=== PATIENT | female | born 1945 | race American Indian/Alaskan Native ===

== ENCOUNTER 2023-07-07 09:23 | Inpatient (IN) | payer OTHER, MEDICAID ==
[2023-07-07] VITALS (14 sets, daily range): BP systolic 86–149; PULSE 102–130; RESP 20–26; TEMP 97–101.7; O2SAT 85–100
[~2023-07-07] VITALS: Ht 165.1 cm; Wt 80.7 kg
[~2023-07-07 09:23] MED LIST: ETOMIDATE 20 MG/ 10 ML VIAL (AMIDATE) IVP ONE; SUCCINYLCHOLINE CHLORIDE 20 MG/ML(QUELICIN) IVP ONE
[2023-07-07 09:37] LABS: BLOOD GAS PCO2 34.2 mmHg (35.0-45.0); BLOOD GAS PH 7.362 (7.350-7.450)
[2023-07-07 09:55] LABS: BASOPHILS % (AUTO) 0.2 % (0.0-2.0); EOSINOPHILS % (AUTO) 0.1 % (0.0-4.0); HEMATOCRIT 29.3 % (36-48); HEMOGLOBIN 9.7 g/dL (12.0-16.0); LYMPHOCYTES # (AUTO) 1.9 K/uL (1.0-5.5); MEAN CORPUSCULAR HEMOGLOBIN 30 pg (27-31); MEAN CORPUSCULAR HGB CONC 33 % (32-36); MEAN CORPUSCULAR VOLUME 90 fL (79.0-98.0); MONOCYTES # (AUTO) 0.7 K/uL (0.0-1.0); NEUTROPHILS # (AUTO) 11.9 K/uL (1.8-7.7); NEUTROPHILS % (AUTO) 81.7 % (40.0-70.0); PLATELET COUNT (AUTO) 318 K/uL (130-430); RED BLOOD CELL COUNT(AUTO) 3.25 MIL/uL (4.2-6.2); RED CELL DISTRIBUTION WIDTH 12.9 % (9.0-15.0); WHITE BLOOD COUNT (AUTO) 14.6 K/uL (4.8-10.8)
[2023-07-07] MEDS: ACETAMINOPHEN 325 MG SUPP.RECT RC ONE (10:02)
[2023-07-07] MEDS ORDERED: FURO-150 GT (10:04)
[2023-07-07] MEDS ORDERED: AMIN30LI45 GT (10:04)
[2023-07-07] MEDS ORDERED: POLY17PO4 GT (10:04)
[2023-07-07] MEDS ORDERED: LACT1CAP7 GT (10:04)
[2023-07-07] MEDS ORDERED: SENN8.6T19 GT (10:04)
[2023-07-07] MEDS ORDERED: FERR220S5 GT (10:04)
[2023-07-07] MEDS ORDERED: SIME80TA5 GT (10:04)
[2023-07-07] MEDS ORDERED: HYDR100T25 GT (10:04)
[2023-07-07] MEDS ORDERED: ALBU2.5V7 NEB ×2 (10:04)
[2023-07-07] MEDS ORDERED: AMLO10TA88 GT (10:04)
[2023-07-07] MEDS ORDERED: ZINC50TA2 GT (10:04)
[2023-07-07] MEDS ORDERED: LEVE100S GT (10:04)
[2023-07-07] MEDS ORDERED: INSU100V (10:04)
[2023-07-07] MEDS ORDERED: METF-380 GT (10:04)
[2023-07-07] MEDS ORDERED: ASCO500S10 GT (10:04)
[2023-07-07] MEDS ORDERED: ASPI-524 GT (10:04)
[2023-07-07] MEDS ORDERED: METO-540 GT (10:04)
[2023-07-07] MEDS ORDERED: PERIDEX PO (10:04)
[2023-07-07 10:05] LABS: ANION GAP 16 (5-15); CALCIUM 9.3 mg/dL (8.4-11.0); CARBON DIOXIDE 22 mmol/L (23-29); CHLORIDE 99 mmol/L (98-107); CREATININE 1.03 mg/dL (0.55-1.30); GLUCOSE 299 mg/dL (74-106); POTASSIUM 3.9 mmol/L (3.5-5.1); SODIUM SERUM 137 mmol/L (136-145); UREA NITROGEN, BLOOD 38 mg/dL (8-21)
[2023-07-07] MEDS: ALBUTEROL SULFATE 0.083% 2.5 MG/3 ML VIAL.NEB INH ONE (10:06)
[2023-07-07] MEDS: IPRATROPIUM BROM 0.5 MG/2.5 ML VIAL.NEB (ATROVENT) INH ONE (10:07)
[2023-07-07 10:10] LABS: BILIRUBIN,URINE NEGATIVE (NEGATIVE); BLOOD, URINE 2+ (NEGATIVE); CLARITY/URINE HAZY (CLEAR); COLOR,URINE YELLOW (YELLOW); GLUCOSE,URINE 2+ (NEGATIVE); KETONES,URINE NEGATIVE (NEGATIVE); LEUKOCYTE ESTERASE ,URINE 1+ (NEGATIVE); NITRITE, URINE NEGATIVE (NEGATIVE); PROTEIN URINE 2+ (NEGATIVE); UROBILINOGEN,URINE 0.2 (0.2-1.0)
[2023-07-07 10:12] LABS: ALANINE AMINOTRANSFERASE 30 U/L (12-78); ALBUMIN 2.9 g/dL (3.4-4.8); ASPARTATE AMINOTRANSFERASE 40 U/L (10-37); BILIRUBIN,DIRECT 0.1 mg/dL (0.0-0.3); TOTAL BILIRUBIN 0.2 mg/dL (0.0-1.0); TOTAL PROTEIN, SERUM 6.8 g/dL (6.4-8.3)
[2023-07-07 10:32] LABS: INFLUENZA TYPE B NEGATIVE (NEGATIVE)
[2023-07-07 10:33] LABS: RBC,URINE 20-50 /HPF (0-3)
[2023-07-07 10:34] LABS: BACTERIA,URINE FEW /HPF (None Seen)
[2023-07-07 10:37] LABS: INFLUENZA TYPE A Positive (NEGATIVE)
[2023-07-07 10:43] LABS: PROTHROMBIN TIME 10.5 SECS (9.5-12.5)
[2023-07-07] MEDS: OSELTAMIVIR PHOSPHATE 6 MG/1 ML, 60 ML SUSP PO ONE (10:45)
[2023-07-07] MEDS: KCL 20 mEq in D5/0.45NS 1000mL 1,000 ML IV ONE (10:45)
[2023-07-07 11:26] LABS: INR 1.1 (0.8-1.2); PROTHROMBIN TIME 10.9 SECS (9.5-12.5)
[2023-07-07] MEDS: NACL 0.9% 1,000 ML IV ONE ×2 (11:26→16:01)
[2023-07-07] MEDS: cefTRIAXone 1 GM IVPB PREMIX 50 ML IV ONE (11:32)
[2023-07-07] MEDS: LevALBUTEROL HCL 1.25 MG/0.5 ML *CONC.* VIAL.NEB (XOPENEX CONC.) INH SCH (12:02)
[2023-07-07] MEDS ORDERED: OSELTAMIVIR PHOSPHATE 6 MG/1 ML, 60 ML SUSP ONE (12:08)
[2023-07-07] MEDS: PIPERACILLIN/TAZO 3.375 GM in NS 50 ML IV ONE (12:19)
[2023-07-07] MEDS: ETOMIDATE 20 MG/ 10 ML VIAL (AMIDATE) IVP ONE (12:50)
[2023-07-07] MEDS: SUCCINYLCHOLINE CHLORIDE 20 MG/ML(QUELICIN) IVP ONE (12:50)
[2023-07-07] MEDS ORDERED: INSULIN REGULAR, HUMAN 10 UNITS/0.1 ML, 3 ML VIAL ONE (13:13)
[2023-07-07] MEDS: INSULIN REGULAR, HUMAN 100 UNITS/ML, 3 ML VIAL (humuLIN R) SUBCUT SCH (13:15)
[2023-07-07] MEDS: PROPOFOL DRIP 100 ML IV ONE (13:16)
[2023-07-07] MEDS: metroNIDAZOLE 500 mg/NS 100 ML IV ONE (13:45)
[2023-07-07 13:55] LABS: ABG O2 SAT% ESTIMATE 98.6 % (94.0-100.0); BLOOD GAS PCO2 37.6 mmHg (35.0-45.0); BLOOD GAS PO2 145.2 mmHg (75.0-100.0)
[2023-07-07 14:10] LABS: BLOOD GAS PH 7.268 (7.350-7.450)
[2023-07-07 14:11] LABS: BLOOD GAS BASE EXCESS -9.4 mmol/L (-3.0-3.0); BLOOD GAS HCO3 16.8 mmol/L (21.0-27.0)
[2023-07-07 14:12] LABS: ALLEN'S TEST POSITIVE (P)
[2023-07-07 14:20] LABS: ABG O2 SAT% ESTIMATE 83.6 % (94.0-100.0); BLOOD GAS BASE EXCESS -5.5 mmol/L (-3.0-3.0)
[2023-07-07 14:21] LABS: ALLEN'S TEST POSITIVE (P)
[2023-07-07] MEDS ORDERED: GLUCOSE (DEXTROSE) ORAL GEL -Adults PO PRN (14:30)
[2023-07-07] MEDS ORDERED: D5W 1,000 ML IV PRN (14:30)
[2023-07-07] MEDS ORDERED: DEXTROSE 50%-WATER 50 ML DISP.SYRIN IVP PRN (14:30)
[2023-07-07] MEDS: LevETIRAcetam 500 MG/5 ML UDC ORAL LIQUID GT SCH (14:45)
[2023-07-07] MEDS: VANCOMYCIN HCL 500 MG in NS 100 ML IV SCH (16:00)
[2023-07-07] MEDS: methylPREDNISolone SOD SUCC/PF 62.5 MG/ML VIAL IVP ONE (16:19)
[2023-07-07] MEDS: SODIUM BICARBONATE 8.4% JECT 50 MEQ/50 ML SYRINGE IVP ONE ×2 (16:29→18:30)
[2023-07-07] MEDS: NACL 0.9% 1,000 ML IV SCH ×2 (16:35→18:45)
[2023-07-07 17:41] LABS: BLOOD GAS PO2 63.4 mmHg (75.0-100.0)
[2023-07-07 17:47] LABS: ABG O2 SAT% ESTIMATE 87.7 % (94.0-100.0); ALLEN'S TEST POSITIVE (P); BLOOD GAS BASE EXCESS -7.9 mmol/L (-3.0-3.0); BLOOD GAS PH 7.221 (7.350-7.450)
[2023-07-07] MEDS: PIPERACILLIN/TAZO 3.375 GM in NS 50 ML IV SCH (18:00)
[2023-07-07] MEDS: CHLORHEXIDINE GLUCONATE 15 ML/DOSE, 480 ML MM SCH (20:51)
[2023-07-07] MEDS: SIMETHICONE 80 MG TAB.CHEW GT SCH (20:51)
[2023-07-07] MEDS: ENOXAPARIN SODIUM 40 MG/0.4 ML SYRINGE SUBCUT SCH (20:51)
[2023-07-07] MEDS: FERROUS SULFATE 300 MG/5 ML UDC GT SCH (21:00)
[2023-07-07] MEDS: methylPREDNISolone SOD SUCC/PF 62.5 MG/ML VIAL IVP SCH (21:19)
[2023-07-07 21:35] LABS: PROTHROMBIN TIME 10.7 SECS (9.5-12.5)
[2023-07-07] MEDS: NOREPINEPHRINE BITARTRATE 4 MG in NS 246 ML IV PRN (21:51)
[2023-07-07] MEDS: PROPOFOL DRIP 100 ML IV PRN (21:53)
[2023-07-07] MEDS: NOREPINEPHRINE 4 MG/4 ML VIAL IV ONE (22:02)
[2023-07-08] VITALS (36 sets, daily range): BP systolic 88–147; PULSE 81–123; RESP 20–28; TEMP 97.5–98.5; O2SAT 94–100
[2023-07-08] MEDS: PIPERACILLIN/TAZOBACTAM 3.375 GM/VIAL (ZOSYN) IV ONE (00:13)
[2023-07-08] MEDS: INSULIN REGULAR, HUMAN 100 UNITS/ML, 3 ML VIAL (humuLIN R) SUBCUT PRN (00:21)
[2023-07-08] MEDS: LevETIRAcetam 500 MG/5 ML UDC ORAL LIQUID ONE (02:41)
[2023-07-08 06:20] LABS: ANION GAP 13 (5-15); CARBON DIOXIDE 22 mmol/L (23-29); CHLORIDE 109 mmol/L (98-107); CREATININE 1.11 mg/dL (0.55-1.30); GLUCOSE 185 mg/dL (74-106); POTASSIUM 3.8 mmol/L (3.5-5.1); SODIUM SERUM 144 mmol/L (136-145); UREA NITROGEN, BLOOD 36 mg/dL (8-21)
[2023-07-08 06:25] LABS: BASOPHILS % (AUTO) 0.1 % (0.0-2.0); HEMATOCRIT 25.2 % (36-48); HEMOGLOBIN 8.5 g/dL (12.0-16.0); LYMPHOCYTES # (AUTO) 0.9 K/uL (1.0-5.5); LYMPHOCYTES % (AUTO) 3.6 % (20.5-51.5); MEAN CORPUSCULAR HEMOGLOBIN 30 pg (27-31); MEAN CORPUSCULAR HGB CONC 34 % (32-36); MEAN CORPUSCULAR VOLUME 88 fL (79.0-98.0); MONOCYTES # (AUTO) 0.5 K/uL (0.0-1.0); MONOCYTES % (AUTO) 2.2 % (1.7-9.3); NEUTROPHILS # (AUTO) 22.4 K/uL (1.8-7.7); NEUTROPHILS % (AUTO) 94.1 % (40.0-70.0); PLATELET COUNT (AUTO) 255 K/uL (130-430); RED BLOOD CELL COUNT(AUTO) 2.85 MIL/uL (4.2-6.2); RED CELL DISTRIBUTION WIDTH 13.6 % (9.0-15.0); WHITE BLOOD COUNT (AUTO) 23.8 K/uL (4.8-10.8)
[2023-07-08] MEDS: ASCORBIC ACID 500 MG TABLET GT SCH (08:43)
[2023-07-08] MEDS: SENNOSIDES 8.6 MG TABLET GT SCH (08:43)
[2023-07-08] MEDS: POLYETHYLENE GLYCOL 3350, 17 GM/ POWD.PACK GT SCH (08:45)
[2023-07-08] MEDS: ASPIRIN 81 MG TAB.CHEW GT SCH (08:45)
[2023-07-08] MEDS ORDERED: [UNRECOGNIZED DRUG - OTHER] GT SCH (09:00)
[2023-07-08] MEDS: LACTOBACILLUS RHAMNOSUS GG 1 CAP CAPSULE GT SCH (09:00)
[2023-07-08] MEDS ORDERED: PROTEIN HYDROLYS GT SCH (09:00)
[2023-07-08] MEDS ORDERED: AMINO ACIDS GT SCH (09:00)
[2023-07-08] MEDS: METOPROLOL TARTRATE 25 MG TABLET PO ONE (11:42)
[2023-07-08] MEDS: PIPERACILLIN/TAZOBACTAM 3.375 GM/ D5W 50 ML IV SCH (11:43)
[2023-07-08 11:45] LABS: ABG O2 SAT% ESTIMATE 94.3 % (94.0-100.0); BLOOD GAS BASE EXCESS -4.3 mmol/L (-3.0-3.0); BLOOD GAS HCO3 18.3 mmol/L (21.0-27.0); BLOOD GAS PCO2 27.7 mmHg (35.0-45.0); BLOOD GAS PH 7.437 (7.350-7.450); BLOOD GAS PO2 67.3 mmHg (75.0-100.0)
[2023-07-08 11:48] LABS: ALLEN'S TEST POSITIVE (P)
[2023-07-08] MEDS: METOPROLOL TARTRATE 25 MG TABLET PO SCH (20:34)
[2023-07-09] VITALS (35 sets, daily range): BP systolic 90–149; PULSE 57–96; RESP 14–30; TEMP 96.4–97.9; O2SAT 93–100
[2023-07-09 06:48] LABS: ALANINE AMINOTRANSFERASE 50 U/L (12-78); ALBUMIN 2.1 g/dL (3.4-4.8); ANION GAP 14 (5-15); ASPARTATE AMINOTRANSFERASE 54 U/L (10-37); CALCIUM 8.8 mg/dL (8.4-11.0); CARBON DIOXIDE 21 mmol/L (23-29); CHLORIDE 111 mmol/L (98-107); CREATININE 1.13 mg/dL (0.55-1.30); GLUCOSE 218 mg/dL (74-106); POTASSIUM 3.4 mmol/L (3.5-5.1); SODIUM SERUM 146 mmol/L (136-145); TOTAL BILIRUBIN 0.2 mg/dL (0.0-1.0); UREA NITROGEN, BLOOD 38 mg/dL (8-21)
[2023-07-09 07:19] LABS: HEMATOCRIT 27.4 % (36-48); HEMOGLOBIN 9.1 g/dL (12.0-16.0); MEAN CORPUSCULAR HEMOGLOBIN 29 pg (27-31); MEAN CORPUSCULAR HGB CONC 33 % (32-36); MEAN CORPUSCULAR VOLUME 88 fL (79.0-98.0); PLATELET COUNT (AUTO) 231 K/uL (130-430); RED CELL DISTRIBUTION WIDTH 13.8 % (9.0-15.0)
[2023-07-09 07:40] LABS: WHITE BLOOD COUNT (AUTO) 34.9 K/uL (4.8-10.8)
[2023-07-09 08:24] LABS: BAND % (MANUAL) 54 % (0-6); BASOPHILS % (MANUAL) 0 % (0-2); EOSINOPHILS % (MANUAL) 0 % (0-7); LYMPHOCYTES % (MANUAL) 0 % (20-46); METAMYELOCYTES % 5 % (0-0); MONOCYTES % (MANUAL) 2 % (0-11)
[2023-07-09 08:26] LABS: PLATELET ESTIMATE ADEQUATE (ADEQUATE)
[2023-07-09] MEDS: OSELTAMIVIR PHOSPHATE 6 MG/1 ML, 60 ML SUSP PO SCH (20:34)
[2023-07-09] MEDS: LINEZOLID 300 ML IV SCH (20:44)
[2023-07-10] VITALS (38 sets, daily range): BP systolic 112–166; PULSE 65–79; RESP 18–21; TEMP 97–97.4; O2SAT 97–100
[2023-07-10 05:06] LABS: BASOPHILS % (AUTO) 0.2 % (0.0-2.0); HEMATOCRIT 23.3 % (36-48); HEMOGLOBIN 7.7 g/dL (12.0-16.0); LYMPHOCYTES # (AUTO) 0.5 K/uL (1.0-5.5); LYMPHOCYTES % (AUTO) 1.7 % (20.5-51.5); MEAN CORPUSCULAR HEMOGLOBIN 29 pg (27-31); MEAN CORPUSCULAR HGB CONC 33 % (32-36); MEAN CORPUSCULAR VOLUME 88 fL (79.0-98.0); MONOCYTES # (AUTO) 0.5 K/uL (0.0-1.0); MONOCYTES % (AUTO) 1.6 % (1.7-9.3); NEUTROPHILS # (AUTO) 28.8 K/uL (1.8-7.7); NEUTROPHILS % (AUTO) 96.5 % (40.0-70.0); PLATELET COUNT (AUTO) 197 K/uL (130-430); RED BLOOD CELL COUNT(AUTO) 2.64 MIL/uL (4.2-6.2); RED CELL DISTRIBUTION WIDTH 13.8 % (9.0-15.0); WHITE BLOOD COUNT (AUTO) 29.9 K/uL (4.8-10.8)
[2023-07-10 05:45] LABS: ANION GAP 16 (5-15); CALCIUM 8.4 mg/dL (8.4-11.0); CARBON DIOXIDE 19 mmol/L (23-29); CHLORIDE 113 mmol/L (98-107); CREATININE 1.09 mg/dL (0.55-1.30); GLUCOSE 257 mg/dL (74-106); SODIUM SERUM 148 mmol/L (136-145); UREA NITROGEN, BLOOD 45 mg/dL (8-21)
[2023-07-10 06:02] LABS: POTASSIUM 2.9 mmol/L (3.5-5.1)
[2023-07-10] MEDS: KCL 40 mEq in 100 mL (PREMIX) 100 ML IV ONE (15:48)
[2023-07-10] MEDS: POTASSIUM CHLORIDE 20 MEQ/PKT PACKET GT ONE (17:08)
[2023-07-10] MEDS: SODIUM BICARBONATE 8.4% JECT 50 MEQ/50 ML SYRINGE IVP ONE ×2 (17:10)
[2023-07-11] VITALS (37 sets, daily range): BP systolic 127–188; PULSE 52–104; RESP 12–21; TEMP 96.5–98.7; O2SAT 95–100
[2023-07-11 05:55] LABS: BASOPHILS % (AUTO) 0.1 % (0.0-2.0); HEMOGLOBIN 7.9 g/dL (12.0-16.0); LYMPHOCYTES # (AUTO) 0.7 K/uL (1.0-5.5); LYMPHOCYTES % (AUTO) 3.1 % (20.5-51.5); MEAN CORPUSCULAR HEMOGLOBIN 29 pg (27-31); MEAN CORPUSCULAR HGB CONC 33 % (32-36); MEAN CORPUSCULAR VOLUME 88 fL (79.0-98.0); MONOCYTES # (AUTO) 0.3 K/uL (0.0-1.0); MONOCYTES % (AUTO) 1.6 % (1.7-9.3); NEUTROPHILS # (AUTO) 20.6 K/uL (1.8-7.7); NEUTROPHILS % (AUTO) 95.2 % (40.0-70.0); PLATELET COUNT (AUTO) 205 K/uL (130-430); RED BLOOD CELL COUNT(AUTO) 2.72 MIL/uL (4.2-6.2); RED CELL DISTRIBUTION WIDTH 13.8 % (9.0-15.0); WHITE BLOOD COUNT (AUTO) 21.7 K/uL (4.8-10.8)
[2023-07-11 06:19] LABS: ALANINE AMINOTRANSFERASE 45 U/L (12-78); ALBUMIN 1.7 g/dL (3.4-4.8); ANION GAP 16 (5-15); ASPARTATE AMINOTRANSFERASE 23 U/L (10-37); CALCIUM 8.5 mg/dL (8.4-11.0); CARBON DIOXIDE 21 mmol/L (23-29); CHLORIDE 113 mmol/L (98-107); CREATININE 0.97 mg/dL (0.55-1.30); GLUCOSE 279 mg/dL (74-106); POTASSIUM 3.4 mmol/L (3.5-5.1); SODIUM SERUM 150 mmol/L (136-145); TOTAL BILIRUBIN 0.2 mg/dL (0.0-1.0); TOTAL PROTEIN, SERUM 5.6 g/dL (6.4-8.3); UREA NITROGEN, BLOOD 40 mg/dL (8-21)
[2023-07-11 09:43] LABS: ABG O2 SAT% ESTIMATE 96.9 % (94.0-100.0); BLOOD GAS PH 7.415 (7.350-7.450); BLOOD GAS PO2 87.3 mmHg (75.0-100.0)
[2023-07-11 09:54] LABS: ALLEN'S TEST POSITIVE (P); BLOOD GAS BASE EXCESS -4.3 mmol/L (-3.0-3.0); BLOOD GAS HCO3 18.9 mmol/L (21.0-27.0); BLOOD GAS PCO2 30.1 mmHg (35.0-45.0)
[2023-07-11] MEDS: CHLORHEXIDINE GLUC 0.12% 15 ML MOUTHWASH UDC MM SCH (21:42)
[2023-07-12] VITALS (36 sets, daily range): BP systolic 131–181; PULSE 60–80; RESP 12–21; TEMP 96.5–98.5; O2SAT 97–99
[2023-07-12 05:24] LABS: BASOPHILS % (AUTO) 0.1 % (0.0-2.0); HEMATOCRIT 24.3 % (36-48); HEMOGLOBIN 8.1 g/dL (12.0-16.0); LYMPHOCYTES # (AUTO) 0.6 K/uL (1.0-5.5); LYMPHOCYTES % (AUTO) 4.4 % (20.5-51.5); MEAN CORPUSCULAR HEMOGLOBIN 29 pg (27-31); MEAN CORPUSCULAR HGB CONC 33 % (32-36); MEAN CORPUSCULAR VOLUME 88 fL (79.0-98.0); MONOCYTES # (AUTO) 0.4 K/uL (0.0-1.0); MONOCYTES % (AUTO) 3.5 % (1.7-9.3); NEUTROPHILS # (AUTO) 11.8 K/uL (1.8-7.7); PLATELET COUNT (AUTO) 218 K/uL (130-430); RED BLOOD CELL COUNT(AUTO) 2.77 MIL/uL (4.2-6.2); RED CELL DISTRIBUTION WIDTH 13.8 % (9.0-15.0)
[2023-07-12 05:48] LABS: ALANINE AMINOTRANSFERASE 46 U/L (12-78); ALBUMIN 1.8 g/dL (3.4-4.8); ANION GAP 13 (5-15); ASPARTATE AMINOTRANSFERASE 18 U/L (10-37); CALCIUM 8.6 mg/dL (8.4-11.0); CARBON DIOXIDE 23 mmol/L (23-29); CHLORIDE 113 mmol/L (98-107); GLUCOSE 261 mg/dL (74-106); POTASSIUM 3.1 mmol/L (3.5-5.1); SODIUM SERUM 149 mmol/L (136-145); TOTAL BILIRUBIN 0.2 mg/dL (0.0-1.0); TOTAL PROTEIN, SERUM 5.5 g/dL (6.4-8.3); UREA NITROGEN, BLOOD 33 mg/dL (8-21)
[2023-07-12 07:40] LABS: WHITE BLOOD COUNT (AUTO) 12.8 K/uL (4.8-10.8)
[2023-07-12] MEDS: POTASSIUM CHLORIDE 20 MEQ/PKT PACKET GT ONE (09:35)
[2023-07-12] MEDS: hydrALAZINE HCL 20 MG/ML VIAL IVP PRN (18:14)
[2023-07-13] VITALS (34 sets, daily range): BP systolic 138–183; PULSE 70–97; RESP 13–21; TEMP 96.5–98.1; O2SAT 96–100
[2023-07-13 05:06] LABS: EOSINOPHILS % (AUTO) 0.2 % (0.0-4.0); HEMATOCRIT 25.2 % (36-48); HEMOGLOBIN 8.4 g/dL (12.0-16.0); LYMPHOCYTES # (AUTO) 0.7 K/uL (1.0-5.5); LYMPHOCYTES % (AUTO) 9.2 % (20.5-51.5); MEAN CORPUSCULAR HEMOGLOBIN 29 pg (27-31); MEAN CORPUSCULAR HGB CONC 34 % (32-36); MEAN CORPUSCULAR VOLUME 88 fL (79.0-98.0); MONOCYTES # (AUTO) 0.4 K/uL (0.0-1.0); MONOCYTES % (AUTO) 4.4 % (1.7-9.3); NEUTROPHILS % (AUTO) 86.2 % (40.0-70.0); PLATELET COUNT (AUTO) 252 K/uL (130-430); RED BLOOD CELL COUNT(AUTO) 2.87 MIL/uL (4.2-6.2); RED CELL DISTRIBUTION WIDTH 13.6 % (9.0-15.0); WHITE BLOOD COUNT (AUTO) 8.1 K/uL (4.8-10.8)
[2023-07-13 05:11] LABS: ANION GAP 11 (5-15); CALCIUM 7.9 mg/dL (8.4-11.0); CARBON DIOXIDE 23 mmol/L (23-29); CHLORIDE 112 mmol/L (98-107); GLUCOSE 208 mg/dL (74-106); POTASSIUM 3.8 mmol/L (3.5-5.1); SODIUM SERUM 146 mmol/L (136-145); UREA NITROGEN, BLOOD 29 mg/dL (8-21)
[2023-07-13] MEDS ORDERED: SUCCINYLCHOLINE CHLORIDE 20 MG/ML(QUELICIN) ONE (07:30)
[2023-07-13] MEDS ORDERED: ETOMIDATE 20 MG/ 10 ML VIAL (AMIDATE) ONE (07:30)
[2023-07-13] MEDS: amLODIPine BESYLATE 10 MG TABLET GT SCH (09:58)
[2023-07-13 14:12] LABS: BLOOD GAS BASE EXCESS -1.5 mmol/L (-3.0-3.0); BLOOD GAS HCO3 21.3 mmol/L (21.0-27.0); BLOOD GAS PCO2 31.2 mmHg (35.0-45.0); BLOOD GAS PH 7.453 (7.350-7.450); BLOOD GAS PO2 102.8 mmHg (75.0-100.0)
[2023-07-13 14:13] LABS: ALLEN'S TEST POSITIVE (P)
[2023-07-13 17:13] LABS: ABG O2 SAT% ESTIMATE 95.9 % (94.0-100.0); ALLEN'S TEST POSITIVE (P); BLOOD GAS BASE EXCESS -4.2 mmol/L (-3.0-3.0); BLOOD GAS HCO3 23.6 mmol/L (21.0-27.0); BLOOD GAS PH 7.258 (7.350-7.450); BLOOD GAS PO2 92.6 mmHg (75.0-100.0)
[2023-07-14] VITALS (35 sets, daily range): BP systolic 87–168; PULSE 60–143; RESP 13–32; TEMP 97.5–102.6; O2SAT 94–100
[2023-07-14 05:34] LABS: BASOPHILS % (AUTO) 0.2 % (0.0-2.0); EOSINOPHILS % (AUTO) 0.1 % (0.0-4.0); HEMATOCRIT 24.2 % (36-48); HEMOGLOBIN 8.2 g/dL (12.0-16.0); LYMPHOCYTES # (AUTO) 0.7 K/uL (1.0-5.5); LYMPHOCYTES % (AUTO) 6.2 % (20.5-51.5); MEAN CORPUSCULAR HEMOGLOBIN 30 pg (27-31); MEAN CORPUSCULAR HGB CONC 34 % (32-36); MEAN CORPUSCULAR VOLUME 88 fL (79.0-98.0); MONOCYTES # (AUTO) 0.3 K/uL (0.0-1.0); MONOCYTES % (AUTO) 2.7 % (1.7-9.3); NEUTROPHILS # (AUTO) 9.6 K/uL (1.8-7.7); NEUTROPHILS % (AUTO) 90.8 % (40.0-70.0); PLATELET COUNT (AUTO) 281 K/uL (130-430); RED BLOOD CELL COUNT(AUTO) 2.73 MIL/uL (4.2-6.2); WHITE BLOOD COUNT (AUTO) 10.6 K/uL (4.8-10.8)
[2023-07-14 05:43] LABS: ANION GAP 13 (5-15); CALCIUM 8.4 mg/dL (8.4-11.0); CARBON DIOXIDE 22 mmol/L (23-29); CHLORIDE 113 mmol/L (98-107); CREATININE 0.76 mg/dL (0.55-1.30); GLUCOSE 241 mg/dL (74-106); POTASSIUM 3.7 mmol/L (3.5-5.1); SODIUM SERUM 148 mmol/L (136-145); UREA NITROGEN, BLOOD 30 mg/dL (8-21)
[2023-07-14 09:36] LABS: ABG O2 SAT% ESTIMATE 99.2 % (94.0-100.0); BLOOD GAS BASE EXCESS -0.6 mmol/L (-3.0-3.0); BLOOD GAS HCO3 22.9 mmol/L (21.0-27.0); BLOOD GAS PCO2 34.8 mmHg (35.0-45.0); BLOOD GAS PH 7.437 (7.350-7.450); BLOOD GAS PO2 171.1 mmHg (75.0-100.0)
[2023-07-14 09:41] LABS: ALLEN'S TEST POSITIVE (P)
[2023-07-14] MEDS: PIPERACILLIN/TAZOBACTAM 3.375 GM/ D5W 50 ML IV SCH (17:44)
[2023-07-15] VITALS (36 sets, daily range): BP systolic 115–175; PULSE 73–88; RESP 11–18; TEMP 97.5–98.2; O2SAT 94–100
[2023-07-15 06:55] LABS: ANION GAP 13 (5-15); CARBON DIOXIDE 22 mmol/L (23-29); CHLORIDE 111 mmol/L (98-107); CREATININE 0.74 mg/dL (0.55-1.30); GLUCOSE 238 mg/dL (74-106); SODIUM SERUM 146 mmol/L (136-145); UREA NITROGEN, BLOOD 31 mg/dL (8-21)
[2023-07-15 06:57] LABS: BASOPHILS % (AUTO) 0.1 % (0.0-2.0); HEMATOCRIT 25.5 % (36-48); HEMOGLOBIN 8.4 g/dL (12.0-16.0); LYMPHOCYTES # (AUTO) 0.8 K/uL (1.0-5.5); LYMPHOCYTES % (AUTO) 6.4 % (20.5-51.5); MEAN CORPUSCULAR HEMOGLOBIN 29 pg (27-31); MEAN CORPUSCULAR HGB CONC 33 % (32-36); MEAN CORPUSCULAR VOLUME 89 fL (79.0-98.0); MONOCYTES # (AUTO) 0.5 K/uL (0.0-1.0); NEUTROPHILS # (AUTO) 11.7 K/uL (1.8-7.7); NEUTROPHILS % (AUTO) 89.5 % (40.0-70.0); PLATELET COUNT (AUTO) 333 K/uL (130-430); RED BLOOD CELL COUNT(AUTO) 2.89 MIL/uL (4.2-6.2); RED CELL DISTRIBUTION WIDTH 13.7 % (9.0-15.0); WHITE BLOOD COUNT (AUTO) 13.1 K/uL (4.8-10.8)
[2023-07-15] MEDS: LANOLIN ALCOHOL/MO/W.PET/CERES 57 GM CREAM..G. TP SCH (09:00)
[2023-07-15] MEDS: POTASSIUM CHLORIDE 20 MEQ/PKT PACKET GT ONE (09:36)
[2023-07-15] MEDS: POTASSIUM CHLORIDE 20 MEQ/PKT PACKET PO ONE (13:10)
[2023-07-15] MEDS: FLUCONAZOLE 200 mg/ NS 100 ML IV SCH (18:48)
[2023-07-16] VITALS (36 sets, daily range): BP systolic 126–179; PULSE 67–82; RESP 11–18; TEMP 96.9–97.7; O2SAT 100
[2023-07-17] VITALS (34 sets, daily range): BP systolic 129–164; PULSE 64–115; RESP 11–19; TEMP 96.8–98; O2SAT 10–100
[2023-07-17 05:09] LABS: BASOPHILS % (AUTO) 0.1 % (0.0-2.0); EOSINOPHILS % (AUTO) 0.2 % (0.0-4.0); HEMATOCRIT 25.1 % (36-48); HEMOGLOBIN 8.4 g/dL (12.0-16.0); LYMPHOCYTES # (AUTO) 0.5 K/uL (1.0-5.5); LYMPHOCYTES % (AUTO) 4.8 % (20.5-51.5); MEAN CORPUSCULAR HEMOGLOBIN 30 pg (27-31); MEAN CORPUSCULAR HGB CONC 33 % (32-36); MEAN CORPUSCULAR VOLUME 89 fL (79.0-98.0); MONOCYTES # (AUTO) 0.4 K/uL (0.0-1.0); MONOCYTES % (AUTO) 3.9 % (1.7-9.3); NEUTROPHILS # (AUTO) 10.2 K/uL (1.8-7.7); PLATELET COUNT (AUTO) 386 K/uL (130-430); RED BLOOD CELL COUNT(AUTO) 2.82 MIL/uL (4.2-6.2); RED CELL DISTRIBUTION WIDTH 13.8 % (9.0-15.0); WHITE BLOOD COUNT (AUTO) 11.3 K/uL (4.8-10.8)
[2023-07-17 05:24] LABS: ANION GAP 14 (5-15); CALCIUM 8.7 mg/dL (8.4-11.0); CARBON DIOXIDE 21 mmol/L (23-29); CHLORIDE 116 mmol/L (98-107); GLUCOSE 237 mg/dL (74-106); POTASSIUM 3.3 mmol/L (3.5-5.1); SODIUM SERUM 151 mmol/L (136-145); UREA NITROGEN, BLOOD 30 mg/dL (8-21)
[2023-07-17] MEDS: TOBRAMYCIN 300MG/5ML INH AMPUL.NEB INH SCH (19:16)
[2023-07-18] VITALS (37 sets, daily range): BP systolic 154–192; PULSE 65–85; RESP 10–14; TEMP 96.3–97.9; O2SAT 96–100
[2023-07-18 05:19] LABS: BASOPHILS % (AUTO) 0.1 % (0.0-2.0); HEMATOCRIT 26.1 % (36-48); HEMOGLOBIN 8.8 g/dL (12.0-16.0); LYMPHOCYTES # (AUTO) 0.6 K/uL (1.0-5.5); LYMPHOCYTES % (AUTO) 4.6 % (20.5-51.5); MEAN CORPUSCULAR HEMOGLOBIN 30 pg (27-31); MEAN CORPUSCULAR HGB CONC 34 % (32-36); MEAN CORPUSCULAR VOLUME 89 fL (79.0-98.0); MONOCYTES # (AUTO) 0.5 K/uL (0.0-1.0); MONOCYTES % (AUTO) 3.6 % (1.7-9.3); NEUTROPHILS # (AUTO) 11.8 K/uL (1.8-7.7); NEUTROPHILS % (AUTO) 91.7 % (40.0-70.0); PLATELET COUNT (AUTO) 373 K/uL (130-430); RED BLOOD CELL COUNT(AUTO) 2.94 MIL/uL (4.2-6.2); RED CELL DISTRIBUTION WIDTH 13.8 % (9.0-15.0); WHITE BLOOD COUNT (AUTO) 12.9 K/uL (4.8-10.8)
[2023-07-18 05:50] LABS: ALANINE AMINOTRANSFERASE 34 U/L (12-78); ANION GAP 16 (5-15); ASPARTATE AMINOTRANSFERASE 12 U/L (10-37); CALCIUM 8.8 mg/dL (8.4-11.0); CARBON DIOXIDE 21 mmol/L (23-29); CHLORIDE 117 mmol/L (98-107); CREATININE 0.62 mg/dL (0.55-1.30); GLUCOSE 116 mg/dL (74-106); POTASSIUM 3.4 mmol/L (3.5-5.1); SODIUM SERUM 154 mmol/L (136-145); TOTAL BILIRUBIN 0.1 mg/dL (0.0-1.0); TOTAL PROTEIN, SERUM 5.3 g/dL (6.4-8.3); UREA NITROGEN, BLOOD 31 mg/dL (8-21)
[2023-07-18] MEDS: KCL 20 mEq in 100 mL (PREMIX) 100 ML IV ONE (08:20)
[2023-07-18] MEDS ORDERED: LORazepam 2 MG/ML VIAL IVP PRN (16:30)
[2023-07-19] VITALS (36 sets, daily range): BP systolic 128–171; PULSE 69–85; RESP 11–27; TEMP 96.7–97; O2SAT 88–100
[2023-07-19 05:00] LABS: BASOPHILS % (AUTO) 0.1 % (0.0-2.0); HEMATOCRIT 24.1 % (36-48); HEMOGLOBIN 8.1 g/dL (12.0-16.0); LYMPHOCYTES # (AUTO) 0.5 K/uL (1.0-5.5); LYMPHOCYTES % (AUTO) 4.3 % (20.5-51.5); MEAN CORPUSCULAR HEMOGLOBIN 30 pg (27-31); MEAN CORPUSCULAR HGB CONC 34 % (32-36); MEAN CORPUSCULAR VOLUME 88 fL (79.0-98.0); MONOCYTES # (AUTO) 0.6 K/uL (0.0-1.0); MONOCYTES % (AUTO) 4.9 % (1.7-9.3); NEUTROPHILS # (AUTO) 10.6 K/uL (1.8-7.7); NEUTROPHILS % (AUTO) 90.7 % (40.0-70.0); PLATELET COUNT (AUTO) 337 K/uL (130-430); RED BLOOD CELL COUNT(AUTO) 2.73 MIL/uL (4.2-6.2); RED CELL DISTRIBUTION WIDTH 13.8 % (9.0-15.0); WHITE BLOOD COUNT (AUTO) 11.7 K/uL (4.8-10.8)
[2023-07-19 05:26] LABS: ALANINE AMINOTRANSFERASE 31 U/L (12-78); ALBUMIN 1.9 g/dL (3.4-4.8); ANION GAP 13 (5-15); ASPARTATE AMINOTRANSFERASE 13 U/L (10-37); CALCIUM 8.7 mg/dL (8.4-11.0); CARBON DIOXIDE 22 mmol/L (23-29); CHLORIDE 118 mmol/L (98-107); GLUCOSE 167 mg/dL (74-106); POTASSIUM 3.6 mmol/L (3.5-5.1); SODIUM SERUM 153 mmol/L (136-145); TOTAL BILIRUBIN 0.2 mg/dL (0.0-1.0); TOTAL PROTEIN, SERUM 4.9 g/dL (6.4-8.3); UREA NITROGEN, BLOOD 35 mg/dL (8-21)
[2023-07-20] VITALS (36 sets, daily range): BP systolic 140–186; PULSE 68–84; RESP 11–17; TEMP 96.4–98; O2SAT 98–100
[2023-07-20 05:51] LABS: BASOPHILS % (AUTO) 0.1 % (0.0-2.0); HEMOGLOBIN 8.6 g/dL (12.0-16.0); LYMPHOCYTES # (AUTO) 0.5 K/uL (1.0-5.5); LYMPHOCYTES % (AUTO) 3.8 % (20.5-51.5); MEAN CORPUSCULAR HEMOGLOBIN 30 pg (27-31); MEAN CORPUSCULAR HGB CONC 33 % (32-36); MEAN CORPUSCULAR VOLUME 89 fL (79.0-98.0); MONOCYTES # (AUTO) 0.7 K/uL (0.0-1.0); MONOCYTES % (AUTO) 4.7 % (1.7-9.3); NEUTROPHILS # (AUTO) 13.1 K/uL (1.8-7.7); NEUTROPHILS % (AUTO) 91.4 % (40.0-70.0); PLATELET COUNT (AUTO) 332 K/uL (130-430); RED CELL DISTRIBUTION WIDTH 14.1 % (9.0-15.0); WHITE BLOOD COUNT (AUTO) 14.3 K/uL (4.8-10.8)
[2023-07-20 06:00] LABS: ALANINE AMINOTRANSFERASE 30 U/L (12-78); ALBUMIN 2.1 g/dL (3.4-4.8); ANION GAP 13 (5-15); ASPARTATE AMINOTRANSFERASE 14 U/L (10-37); CALCIUM 8.7 mg/dL (8.4-11.0); CARBON DIOXIDE 23 mmol/L (23-29); CHLORIDE 116 mmol/L (98-107); CREATININE 0.64 mg/dL (0.55-1.30); GLUCOSE 209 mg/dL (74-106); POTASSIUM 3.7 mmol/L (3.5-5.1); SODIUM SERUM 152 mmol/L (136-145); TOTAL BILIRUBIN 0.2 mg/dL (0.0-1.0); TOTAL PROTEIN, SERUM 5.3 g/dL (6.4-8.3); UREA NITROGEN, BLOOD 34 mg/dL (8-21)
[2023-07-20] MEDS: MORPHINE 2 MG/ML INJ. SYRINGE IVP PRN (11:29)
[2023-07-21] VITALS (34 sets, daily range): BP systolic 130–173; PULSE 62–92; RESP 4–24; TEMP 96.4–97.7; O2SAT 97–100
[2023-07-21 05:49] LABS: HEMATOCRIT 23.9 % (36-48); HEMOGLOBIN 7.9 g/dL (12.0-16.0); MEAN CORPUSCULAR HEMOGLOBIN 30 pg (27-31); MEAN CORPUSCULAR HGB CONC 33 % (32-36); MEAN CORPUSCULAR VOLUME 89 fL (79.0-98.0); PLATELET COUNT (AUTO) 270 K/uL (130-430); RED BLOOD CELL COUNT(AUTO) 2.68 MIL/uL (4.2-6.2); RED CELL DISTRIBUTION WIDTH 14.3 % (9.0-15.0); WHITE BLOOD COUNT (AUTO) 14.1 K/uL (4.8-10.8)
[2023-07-21 06:19] LABS: ALANINE AMINOTRANSFERASE 28 U/L (12-78); ALBUMIN 1.9 g/dL (3.4-4.8); ANION GAP 11 (5-15); ASPARTATE AMINOTRANSFERASE 14 U/L (10-37); CALCIUM 8.8 mg/dL (8.4-11.0); CARBON DIOXIDE 24 mmol/L (23-29); CHLORIDE 119 mmol/L (98-107); CREATININE 0.65 mg/dL (0.55-1.30); GLUCOSE 266 mg/dL (74-106); POTASSIUM 3.9 mmol/L (3.5-5.1); SODIUM SERUM 154 mmol/L (136-145); TOTAL BILIRUBIN 0.2 mg/dL (0.0-1.0); TOTAL PROTEIN, SERUM 4.8 g/dL (6.4-8.3); UREA NITROGEN, BLOOD 36 mg/dL (8-21)
[2023-07-21 12:03] LABS: BASOPHILS % (MANUAL) 0 % (0-2); EOSINOPHILS % (MANUAL) 0 % (0-7); LYMPHOCYTES % (MANUAL) 8 % (20-46); METAMYELOCYTES % 1 % (0-0); MONOCYTES % (MANUAL) 5 % (0-11); PLATELET ESTIMATE ADEQUATE (ADEQUATE)
[2023-07-22] VITALS (29 sets, daily range): BP systolic 129–170; PULSE 87–122; RESP 16–22; TEMP 97.1–97.8; O2SAT 94–100
[2023-07-22 06:43] LABS: BASOPHILS % (AUTO) 0.2 % (0.0-2.0); HEMATOCRIT 26.8 % (36-48); HEMOGLOBIN 8.8 g/dL (12.0-16.0); LYMPHOCYTES # (AUTO) 0.4 K/uL (1.0-5.5); LYMPHOCYTES % (AUTO) 2.2 % (20.5-51.5); MEAN CORPUSCULAR HEMOGLOBIN 29 pg (27-31); MEAN CORPUSCULAR HGB CONC 33 % (32-36); MEAN CORPUSCULAR VOLUME 89 fL (79.0-98.0); MONOCYTES # (AUTO) 0.6 K/uL (0.0-1.0); MONOCYTES % (AUTO) 3.2 % (1.7-9.3); NEUTROPHILS # (AUTO) 18.9 K/uL (1.8-7.7); NEUTROPHILS % (AUTO) 94.4 % (40.0-70.0); PLATELET COUNT (AUTO) 287 K/uL (130-430); RED BLOOD CELL COUNT(AUTO) 3.01 MIL/uL (4.2-6.2); RED CELL DISTRIBUTION WIDTH 14.1 % (9.0-15.0)
[2023-07-22 07:06] LABS: ALANINE AMINOTRANSFERASE 32 U/L (12-78); ALBUMIN 2.2 g/dL (3.4-4.8); ANION GAP 10 (5-15); ASPARTATE AMINOTRANSFERASE 21 U/L (10-37); CARBON DIOXIDE 26 mmol/L (23-29); CHLORIDE 117 mmol/L (98-107); CREATININE 0.51 mg/dL (0.55-1.30); GLUCOSE 225 mg/dL (74-106); POTASSIUM 3.8 mmol/L (3.5-5.1); SODIUM SERUM 153 mmol/L (136-145); TOTAL BILIRUBIN 0.3 mg/dL (0.0-1.0); TOTAL PROTEIN, SERUM 5.2 g/dL (6.4-8.3); UREA NITROGEN, BLOOD 32 mg/dL (8-21)
[2023-07-22] MEDS: methylPREDNISolone SOD SUCC/PF 62.5 MG/ML VIAL IVP SCH (20:09)
[2023-07-23 04:22] VITALS: O2SAT 99
[2023-07-23 08:00] VITALS: BP_SYST 100; PULSE 96; RESP 14; TEMP 96; O2SAT 95
[2023-07-23 08:20] LABS: ALANINE AMINOTRANSFERASE 29 U/L (12-78); ALBUMIN 1.8 g/dL (3.4-4.8); ANION GAP 10 (5-15); ASPARTATE AMINOTRANSFERASE 15 U/L (10-37); CALCIUM 8.8 mg/dL (8.4-11.0); CARBON DIOXIDE 28 mmol/L (23-29); CHLORIDE 119 mmol/L (98-107); CREATININE 0.64 mg/dL (0.55-1.30); GLUCOSE 335 mg/dL (74-106); POTASSIUM 4.1 mmol/L (3.5-5.1); SODIUM SERUM 157 mmol/L (136-145); TOTAL BILIRUBIN 0.2 mg/dL (0.0-1.0); TOTAL PROTEIN, SERUM 4.4 g/dL (6.4-8.3); UREA NITROGEN, BLOOD 51 mg/dL (8-21)
[2023-07-23 08:21] VITALS: O2SAT 94
[2023-07-23 10:54] VITALS: O2SAT 91
[2023-07-23 11:10] LABS: BASOPHILS % (AUTO) 0.1 % (0.0-2.0); LYMPHOCYTES # (AUTO) 0.4 K/uL (1.0-5.5); MEAN CORPUSCULAR HEMOGLOBIN 29 pg (27-31); MEAN CORPUSCULAR HGB CONC 32 % (32-36); MEAN CORPUSCULAR VOLUME 91 fL (79.0-98.0); MONOCYTES # (AUTO) 0.8 K/uL (0.0-1.0); MONOCYTES % (AUTO) 4.2 % (1.7-9.3); NEUTROPHILS # (AUTO) 17.5 K/uL (1.8-7.7); NEUTROPHILS % (AUTO) 93.7 % (40.0-70.0); PLATELET COUNT (AUTO) 195 K/uL (130-430); RED BLOOD CELL COUNT(AUTO) 2.19 MIL/uL (4.2-6.2); RED CELL DISTRIBUTION WIDTH 14.3 % (9.0-15.0); WHITE BLOOD COUNT (AUTO) 18.6 K/uL (4.8-10.8)
[2023-07-23 11:11] LABS: HEMOGLOBIN 6.4 g/dL (12.0-16.0)
[2023-07-23 11:13] VITALS: BP_SYST 54; PULSE 92; RESP 16; TEMP 96.6; O2SAT 91
== END 2023-07-23 12:42 | DRG 870 ==
LOC: SED 09:23 → SIC 13:46 → STU 07-22 21:33
PROVIDERS: ADMIT Family Medicine; ATTEND Family Medicine
PROC: 5A1955Z Respiratory Ventilation, Greater than 96 Consecutive Hours (ICD-10-PCS; principal; 2023-07-07)
PROC: 0BH17EZ Insertion of Endotracheal Airway into Trachea, Via Natural or Artificial Opening (ICD-10-PCS; 2023-07-07)
PROC: 5A0935A Assistance with Respiratory Ventilation, Less than 24 Consecutive Hours, High Flow/Velocity Cannula (ICD-10-PCS; 2023-07-07)
PROC: 02HV33Z Insertion of Infusion Device into Superior Vena Cava, Percutaneous Approach (ICD-10-PCS; 2023-07-08)
PROC: B548ZZA Ultrasonography of Superior Vena Cava, Guidance (ICD-10-PCS; 2023-07-08)
PROC: 5A1955Z Respiratory Ventilation, Greater than 96 Consecutive Hours (ICD-10-PCS; 2023-07-13)
PROC: 0BH17EZ Insertion of Endotracheal Airway into Trachea, Via Natural or Artificial Opening (ICD-10-PCS; 2023-07-13)
DX: A41.9 Sepsis, unspecified organism (principal); R65.21 Severe sepsis with septic shock; J10.08 Influenza due to other identified influenza virus with other specified pneumonia; G82.50 Quadriplegia, unspecified; J80 Acute respiratory distress syndrome; J69.0 Pneumonitis due to inhalation of food and vomit; N39.0 Urinary tract infection, site not specified; Z16.13 Resistance to carbapenem; N17.9 Acute kidney failure, unspecified; K92.0 Hematemesis; A41.89 Other specified sepsis; Z66 Do not resuscitate; I46.9 Cardiac arrest, cause unspecified; D64.9 Anemia, unspecified; F03.90 Unspecified dementia, unspecified severity, without behavioral disturbance, psychotic disturbance, mood disturbance, and anxiety; E11.65 Type 2 diabetes mellitus with hyperglycemia; B96.4 Proteus (mirabilis) (morganii) as the cause of diseases classified elsewhere; I10 Essential (primary) hypertension; R13.10 Dysphagia, unspecified; Z20.822 Contact with and (suspected) exposure to COVID-19; Z86.73 Personal history of transient ischemic attack (TIA), and cerebral infarction without residual deficits; Z88.5 Allergy status to narcotic agent; Z93.1 Gastrostomy status; Z86.718 Personal history of other venous thrombosis and embolism; Z74.01 Bed confinement status; Z88.7 Allergy status to serum and vaccine; Z79.899 Other long term (current) drug therapy
CPT/HCPCS: 36415; 36600; 70450-TC; 71045; 76376; 80048; 80053; 80076; 81000; 81001; 81015; 82140; 82800-TC; 82803; 82948; 82962; 83605; 83735; 83880; 84484; 85007; 85025; 85027; 85610; 85730; 87040; 87070; 87081; 87086; 87205; 92610-GN; 93005; 94002; 94003; 94640; 94760; 99291; G0378; G9035; J0330; J0360; J0696; J1450; J1650; J1815; J2020; J2270; J2543; J2704; J2930; J3260; J3370; J3480; J3490; J7050; J7060; J7612